=== PATIENT | male | born 1960 | race Caucasian/White ===

== ENCOUNTER 2022-01-10 09:30 | Emergency (ER) | payer OTHER, MEDICAID ==
[~2022-01-10] VITALS: Ht 172.7 cm; Wt 81.6 kg
[2022-01-10 09:46] VITALS: BP_SYST 180
[2022-01-10 09:49] LABS: BASOPHILS % (AUTO) 0.5 % (0.0-2.0); EOSINOPHILS # (AUTO) 0.1 K/uL (0.0-0.4); EOSINOPHILS % (AUTO) 0.8 % (0.0-4.0); HEMATOCRIT 42.4 % (36-54); HEMOGLOBIN 14.6 g/dL (14.0-18.0); LYMPHOCYTES # (AUTO) 1.5 K/uL (1.0-5.5); LYMPHOCYTES % (AUTO) 18.7 % (20.5-51.5); MEAN CORPUSCULAR HEMOGLOBIN 31 pg (27-31); MEAN CORPUSCULAR HGB CONC 34 % (32-36); MEAN CORPUSCULAR VOLUME 89 fL (79.0-98.0); MONOCYTES # (AUTO) 0.9 K/uL (0.0-1.0); MONOCYTES % (AUTO) 10.6 % (1.7-9.3); NEUTROPHILS # (AUTO) 5.6 K/uL (1.8-7.7); NEUTROPHILS % (AUTO) 69.4 % (40.0-70.0); PLATELET COUNT (AUTO) 212 K/uL (130-430); RED BLOOD CELL COUNT(AUTO) 4.78 MIL/uL (4.2-6.2); WHITE BLOOD COUNT (AUTO) 8.1 K/uL (4.8-10.8)
[2022-01-10 10:08] LABS: ANION GAP 7 (5-15); CALCIUM 8.1 mg/dL (8.4-11.0); CHLORIDE 100 mmol/L (98-107); CREATININE 0.78 mg/dL (0.55-1.30); GLUCOSE 177 mg/dL (70-99); POTASSIUM 3.4 mmol/L (3.5-5.1); SODIUM SERUM 135 mmol/L (136-145); UREA NITROGEN, BLOOD 15 mg/dL (8-21)
[2022-01-10 10:13] LABS: GFR AFRICAN AMERICAN 130 mL/min (>90)
[2022-01-10 10:15] LABS: ALANINE AMINOTRANSFERASE 26 U/L (12-78); ALBUMIN 3.5 g/dL (3.4-4.8); ASPARTATE AMINOTRANSFERASE 27 U/L (10-37); TOTAL BILIRUBIN 0.5 mg/dL (0.0-1.0)
[2022-01-10 10:28] LABS: ACETONE, SERUM NEGATIVE (NEGATIVE)
[2022-01-10 11:53] VITALS: BP_SYST 141
== END 2022-01-10 11:52 | disposition home or self-care (01) ==
LOC: SED 09:30
DX: E11.649 Type 2 diabetes mellitus with hypoglycemia without coma (principal); Z20.822 Contact with and (suspected) exposure to COVID-19
CPT/HCPCS: 36415; 71045; 80053; 82009; 82962; 84484; 85025; 99284

== ENCOUNTER 2022-03-04 19:13 | Emergency (ER) | payer OTHER, MEDICAID ==
[2022-03-04 19:22] VITALS: BP_SYST 110
--- NOTE | 2022-03-04 19:22 | NUR ---
Patient triaged and placed in AMBULANCE BAY. VSS and patient appears in no acute distress at this time. Accompanied by EMT, awaiting available bed, and MD notified of need for MSE.
--- NOTE | 2022-03-04 19:40 | NUR ---
PT IS AGITATED C/O HE IS HUNGRY AND WANTS FOOD. PT GIVEN WATER AND SANDWICH BY EMT. PT WAS ABLE TO BE REDIRECTED AND CALMED DOWN.
--- NOTE | 2022-03-04 21:34 | NUR ---
Patient to ER bed 6 to gown for evaluation. Side rails up. Report given to SHARRI HAYWARD.
--- NOTE | 2022-03-04 21:41 | NUR ---
Pt ambulated to restroom without assist with EMT, +steady gait
[2022-03-04 21:53] LABS: BASOPHILS # (AUTO) 0.1 K/uL (0.0-0.2); BASOPHILS % (AUTO) 1.3 % (0.0-2.0); EOSINOPHILS # (AUTO) 0.3 K/uL (0.0-0.4); EOSINOPHILS % (AUTO) 3.8 % (0.0-4.0); HEMATOCRIT 36.6 % (36-54); HEMOGLOBIN 12.8 g/dL (14.0-18.0); LYMPHOCYTES # (AUTO) 1.5 K/uL (1.0-5.5); LYMPHOCYTES % (AUTO) 21.5 % (20.5-51.5); MEAN CORPUSCULAR HEMOGLOBIN 31 pg (27-31); MEAN CORPUSCULAR HGB CONC 35 % (32-36); MEAN CORPUSCULAR VOLUME 89 fL (79.0-98.0); MONOCYTES # (AUTO) 0.7 K/uL (0.0-1.0); MONOCYTES % (AUTO) 9.4 % (1.7-9.3); NEUTROPHILS # (AUTO) 4.5 K/uL (1.8-7.7); PLATELET COUNT (AUTO) 218 K/uL (130-430); RED BLOOD CELL COUNT(AUTO) 4.13 MIL/uL (4.2-6.2); RED CELL DISTRIBUTION WIDTH 14.3 % (9.0-15.0); WHITE BLOOD COUNT (AUTO) 7.1 K/uL (4.8-10.8)
--- NOTE | 2022-03-04 22:12 | NUR ---
attepmpted to assess pt. pt is covered in feces including bed. gathered basin with water and towels and gown to change patient. cleaned patient up provided him gown to change. will follow up with monitoring once i return from bed 2 preping for blood transfusion
--- NOTE | 2022-03-04 22:32 | NUR ---
PT upset because he could not get food attempted to go after him was in process of monitoring patient in bed 2 with low bp/lob hgb hct adv patient eloping
[2022-03-04 22:39] LABS: PROTHROMBIN TIME 10.1 SECS (9.5-12.5)
[2022-03-04 22:53] LABS: ALANINE AMINOTRANSFERASE 17 U/L (12-78); ALBUMIN 3.3 g/dL (3.4-4.8); ASPARTATE AMINOTRANSFERASE 18 U/L (10-37); CALCIUM 8.5 mg/dL (8.4-11.0); CREATININE 1.13 mg/dL (0.55-1.30); GLUCOSE 169 mg/dL (70-99); TOTAL BILIRUBIN 0.2 mg/dL (0.0-1.0); UREA NITROGEN, BLOOD 23 mg/dL (8-21)
[2022-03-04 23:34] LABS: ALCOHOL, BLOOD < 3 mg/dL (<10); GFR AFRICAN AMERICAN 84 mL/min (>90)
[2022-03-04 23:39] LABS: ANION GAP 9 (5-15); CHLORIDE 101 mmol/L (98-107); POTASSIUM 4.1 mmol/L (3.5-5.1); SODIUM SERUM 138 mmol/L (136-145)
== END 2022-03-04 22:26 | disposition left against medical advice (07) ==
LOC: SED 19:13
DX: M79.605 Pain in left leg (principal); M79.604 Pain in right leg; Z88.0 Allergy status to penicillin; Z79.899 Other long term (current) drug therapy
CPT/HCPCS: 99283; 80053; 85025; 85610; 85730; 84484; 36415; G0482; 99284